=== PATIENT | male | born 1950 | race African-American/Black ===

== ENCOUNTER 2024-04-11 08:37 | Emergency (ER) | payer OTHER, BC ==
[2024-04-11 08:49] VITALS: BP 123/70; PULSE 89; RESP 18; TEMP 99.8; BMI 25.0
[2024-04-11 10:00] LABS: EPI CELLS 0 /uL (0-25.1); HYALINE CASTS 1 /uL (0-3.1); PH,URINE 5.5 (5.0-8.0); URINE APPEARANCE TURBID; URINE BACTERIA 5252 /uL (0-1359); URINE BILIRUBIN NEGATIVE (NEGATIVE); URINE COLOR ORANGE; URINE GLUCOSE (UA) 3+ (NEGATIVE); URINE KETONE NEGATIVE (NEGATIVE); URINE LEUK ESTERASE 2+ (NEGATIVE); URINE NITRITE POSITIVE (NEGATIVE); URINE PROTEIN 2+ (NEGATIVE); URINE WBC 2196 /uL (0-25.8)
[2024-04-11 10:05] LABS: URINE RBC 639.2 /uL (0-23.9); YEAST NEGATIVE (NEGATIVE)
[2024-04-11] MEDS: CIPROFLOXACIN 500 MG TABLET (RESTRICTED TO ID) PO ONE (11:10)
== END 2024-04-11 11:14 | disposition home or self-care (01) ==
LOC: JER 08:37
PROC: 0T2BX0Z Change Drainage Device in Bladder, External Approach (ICD-10-PCS; principal; 2024-04-11)
DX: R33.9 Retention of urine, unspecified (principal); R10.30 Lower abdominal pain, unspecified
CPT/HCPCS: 81003; 82962; 87086; 87186; 99283-25